=== PATIENT | female | born 1990 | race Caucasian/White ===

== ENCOUNTER 2022-01-12 01:04 | Emergency (ER) | payer BC ==
[~2022-01-12] VITALS: Ht 165.1 cm; Wt 62.6 kg
[2022-01-12 01:17] VITALS: BP_SYST 109
--- NOTE | 2022-01-12 01:25 | NUR ---
Patient to ER bed 6 to for evaluation. Side rails up.
--- NOTE | 2022-01-12 01:25 | NUR ---
Pt came from home with c/o N/V that started yesterday at 1400. Pt states she has no pain and no vaginal bleeding. Reports not being able to keep any food down. Pt states she is 23 weeks . A&O X4, ambulatory, and follows commands. Safety precautions in place and connected to the monitor.
[2022-01-12] MEDS ORDERED: METOCLOPRAMIDE HCL 10 MG/2 ML VIAL IVP ONE (01:30)
[2022-01-12] MEDS ORDERED: DIPHENHYDRAMINE INJ 50 MG/ML VIAL IVP ONE (01:30)
[2022-01-12] MEDS ORDERED: NACL 0.9% 1,000 ML IV ONE (01:30)
--- NOTE | 2022-01-12 01:30 | NUR ---
Dr. Jordan at bedside with patient for evaluation.
[2022-01-12 02:17] LABS: BASOPHILS % (AUTO) 0.1 % (0.0-2.0); EOSINOPHILS % (AUTO) 0.1 % (0.0-4.0); HEMATOCRIT 40.2 % (36-48); HEMOGLOBIN 13.7 g/dL (12.0-16.0); LYMPHOCYTES # (AUTO) 0.9 K/uL (1.0-5.5); LYMPHOCYTES % (AUTO) 6.9 % (20.5-51.5); MEAN CORPUSCULAR HEMOGLOBIN 30 pg (27-31); MEAN CORPUSCULAR HGB CONC 34 % (32-36); MEAN CORPUSCULAR VOLUME 90 fL (79.0-98.0); MONOCYTES # (AUTO) 0.3 K/uL (0.0-1.0); NEUTROPHILS # (AUTO) 11.6 K/uL (1.8-7.7); NEUTROPHILS % (AUTO) 90.9 % (40.0-70.0); PLATELET COUNT (AUTO) 250 K/uL (130-430); RED BLOOD CELL COUNT(AUTO) 4.49 MIL/uL (4.2-6.2); RED CELL DISTRIBUTION WIDTH 14.4 % (9.0-15.0); WHITE BLOOD COUNT (AUTO) 12.8 K/uL (4.8-10.8)
[2022-01-12 02:18] LABS: CALCIUM 7.9 mg/dL (8.4-11.0); CREATININE 0.62 mg/dL (0.55-1.30); POTASSIUM 3.4 mmol/L (3.5-5.1)
[2022-01-12 02:25] LABS: ALBUMIN 2.9 g/dL (3.4-4.8); TOTAL BILIRUBIN 0.6 mg/dL (0.0-1.0)
[2022-01-12 02:30] LABS: BILIRUBIN,URINE NEGATIVE (NEGATIVE); BLOOD, URINE NEGATIVE (NEGATIVE); CLARITY/URINE CLEAR (CLEAR); COLOR,URINE YELLOW (YELLOW); GLUCOSE,URINE NEGATIVE (NEGATIVE); KETONES,URINE 3+ (NEGATIVE); LEUKOCYTE ESTERASE ,URINE NEGATIVE (NEGATIVE); NITRITE, URINE NEGATIVE (NEGATIVE); PROTEIN URINE TRACE (NEGATIVE); UROBILINOGEN,URINE 0.2 (0.2-1.0)
[2022-01-12 02:41] LABS: BACTERIA,URINE RARE /HPF (None Seen); RBC,URINE 0-3 /HPF (0-3); WBC,URINE 0-3 /HPF (0-3)
--- NOTE | 2022-01-12 03:00 | NUR ---
heart tones heard. FHR 180.
--- NOTE | 2022-01-12 03:34 | NUR ---
Pt resting in bed with eyes closed. No signs of resp distress, even rise and fall of chest. Safety precautions are in place and connected to monitoring and evaluation advisor.
[2022-01-12] MEDS ORDERED: POTASSIUM CHLORIDE 10 MEQ TAB.PRT.SR PO ONE (04:15)
[2022-01-12] MEDS ORDERED: BEN50 PO (04:30)
[2022-01-12] MEDS ORDERED: METO-290 PO (04:30)
[2022-01-12 04:40] VITALS: BP_SYST 106
--- NOTE | 2022-01-12 04:40 | NUR ---
Patient given written and verbal discharge instructions and verbalizes understanding. ER Dr. Jordan discussed with patient the results and treatment provided. Patient in stable condition. ID arm band removed. IV catheter removed intact and dressing applied, no active bleeding. Rx of benadryl and reglan given. Patient educated on pain management and to follow up with PMD. Pain Scale 0. Opportunity for questions provided and answered. Medication side effect fact sheet provided.
== END 2022-01-12 04:40 | disposition home or self-care (01) ==
LOC: SED 01:04
DX: O21.9 Vomiting of pregnancy, unspecified (principal); Z3A.23 23 weeks gestation of pregnancy
CPT/HCPCS: 36415; 80053; 81000; 82009; 83690; 85025; 93005; 96361; 96374; 96375; 99284; J1200; J2765; J7030